=== PATIENT | male | born 1970 | race Caucasian/White ===

== ENCOUNTER 2022-09-18 07:59 | Inpatient (IN) | payer SELFPAY ==
[2022-09-18] VITALS (30 sets, daily range): BP systolic 52–90; BP diastolic 34–73
[~2022-09-18] VITALS: Ht 172.7 cm; Wt 67.4 kg
[2022-09-18 08:40] LABS: HEMATOCRIT. 37.6 % (42.0-52.0); HEMOGLOBIN. 12.8 g/dL (14.0-18.0); MEAN CORPUSCULAR HEMOGLOBIN 29.7 pg (28.0-32.0); MEAN CORPUSCULAR VOLUME 87.7 fL (80.0-94.0); RED BLOOD CELL COUNT 4.29 mill/uL (4.7-6.1); RED CELL DISTRIBUTION WIDTH 14.8 % (11.6-14.6)
[2022-09-18 08:41] LABS: CHLORIDE 95 mEq/L (98-107)
[2022-09-18 08:51] LABS: D-DIMER 5.23 mg/L FEU (<0.50); INR 1.4; PROTHROMBIN TIME 14.6 sec (9.6-11.0)
[2022-09-18 08:54] LABS: PLATELET 18 x1000/uL (130-400)
[2022-09-18] MEDS ORDERED: KCL 20MEQ/100ML PREMIX 100 ML IV ONE (09:00)
[2022-09-18] MEDS ORDERED: PIPERACILLIN/TAZ 3.375G PREMIX 50 ML IV ONE (09:15)
[2022-09-18] MEDS ORDERED: VANCOMYCIN 1G PREMIX 200 ML IV SCH (09:15)
[2022-09-18] MEDS ORDERED: CEFEPIME 1,000 MG in DEXTROSE 5% WATER 50 ML IV SCH (09:15)
[2022-09-18 09:47] LABS: NUCLEATED RED BLOOD CELLS 10 /100 WBC; PLATELET ESTIMATE MARKEDLY DECREASED
[2022-09-18] MEDS ORDERED: SODIUM CHLORIDE 0.9% 500 ML IV ONE (11:00)
[2022-09-18] MEDS ORDERED: DOCUSATE SODIUM 100MG CAPSULE PO PRN (11:30)
[2022-09-18] MEDS ORDERED: CLONIDINE 0.1MG TABLET PO PRN (11:30)
[2022-09-18] MEDS ORDERED: HYDROCODONE/ACETAMINOPHEN 5/325MG TABLET PO PRN (11:30)
[2022-09-18] MEDS ORDERED: ACETAMINOPHEN 325MG TABLET PO PRN ×2 (11:30)
[2022-09-18] MEDS ORDERED: ONDANSETRON HCL 4MG/2ML INJ IV PRN (11:30)
[2022-09-18] MEDS ORDERED: LORAZEPAM 0.5MG TABLET PO PRN (11:30)
[2022-09-18] MEDS ORDERED: IPRATROPIUM/ALBUTEROL 0.5-3(2.5)MG/3ML NEB HHN PRN (11:30)
[2022-09-18 11:45] LABS: BG BASE EXCESS -2.2 mmol/L (-2.0-2.0); BG CARBOXYHEMOGLOBIN 0.4 % (0.5-1.5); BG DEOXYHEMOGLOBIN 13.1 % (0.0-5.0); BG HCO3 ACT 21.8 mmol/L (22.0-26.0); BG METHEMOGLOBIN 0.3 % (0.0-1.5); BG OXYGEN SATURATION 86.8 % (92.0-98.5); BG OXYHEMOGLOBIN 86.2 % (94.0-97.0); BG PCO2 34.8 mmHg (35.0-45.0); BG PH 7.414 (7.350-7.450); BG PO2 53.7 mmHg (75.0-100.0); BG SAMPLE SITE RIGHT RADIAL; BG TOTAL HEMOGLOBIN 13.2 g/dL (12.0-18.0); BG VENT MODE MASK - NRB
[2022-09-18 11:48] LABS: PHOSPHORUS 3.7 mg/dL (2.5-4.9)
[2022-09-18] MEDS ORDERED: ALBUTEROL (0.083%) 2.5MG/3ML NEB HHN SCH (12:00)
[2022-09-18] MEDS ORDERED: AZITHROMYCIN 500MG/250ML 250 ML IV SCH (12:00)
[2022-09-18] MEDS ORDERED: IPRATROPIUM BROMIDE (0.02%) 0.5MG/2.5ML NEB HHN SCH (12:00)
[2022-09-18] MEDS ORDERED: IOHEXOL-350 100 ML BOTTLE ONE (12:22)
[2022-09-18] MEDS ORDERED: ETOMIDATE 2MG/ML 10ML VIAL IV ONE (12:45)
[2022-09-18] MEDS ORDERED: MIDAZOLAM 100MG/100ML PMX 100 ML IV PRN (12:45)
[2022-09-18] MEDS ORDERED: FENTANYL 2500MCG/250ML PMX 250 ML IV ONE (12:45)
[2022-09-18] MEDS ORDERED: SUCCINYLCHOLINE CHLORIDE 200MG/10ML IV ONE (12:45)
[2022-09-18] MEDS ORDERED: NOREPINEPHRINE 8 MG in DEXT 5% WATER 242 ML IV STA (12:59)
[2022-09-18] MEDS ORDERED: MIDAZOLAM HCL 100 MG in SODIUM CHLORIDE 0.9% 100 ML IV PRN (13:00)
[2022-09-18] MEDS: FENTANYL 2500MCG/250ML PMX 250 ML IV NR (13:00)
[2022-09-18] MEDS ORDERED: NOREPINEPHRINE 8 MG in DEXT 5% WATER 242 ML IV NR (13:15)
[2022-09-18] MEDS ORDERED: NOREPINEPHRINE 8MG/250ML PMX 250 ML IV PRN (13:30)
[2022-09-18 13:38] LABS: BG BASE EXCESS -5.2 mmol/L (-2.0-2.0); BG CARBOXYHEMOGLOBIN 0.8 % (0.5-1.5); BG DEOXYHEMOGLOBIN 10.1 % (0.0-5.0); BG HCO3 ACT 20.4 mmol/L (22.0-26.0); BG METHEMOGLOBIN 0.1 % (0.0-1.5); BG OXYGEN SATURATION 89.8 % (92.0-98.5); BG PCO2 40.1 mmHg (35.0-45.0); BG PH 7.325 (7.350-7.450); BG PO2 63.5 mmHg (75.0-100.0); BG SAMPLE SITE RIGHT BRACHIAL; BG TOTAL HEMOGLOBIN 14.2 g/dL (12.0-18.0); BG VENT MODE VENT - AC
[2022-09-18] MEDS ORDERED: MIDAZOLAM HCL 2 MG/2 ML VIAL IV ONE ×2 (13:45→14:15)
[2022-09-18] MEDS ORDERED: PIPERACILLIN/TAZ 3.375G PREMIX 50 ML IV SCH (14:00)
[2022-09-18] MEDS: IPRATROPIUM/ALBUTEROL 0.5-3(2.5)MG/3ML NEB HHN SCH (14:39)
[2022-09-18] MEDS ORDERED: MAGNESIUM 2 G PREMIX 50 ML IV NR (15:00)
[2022-09-18] MEDS ORDERED: NALOXONE HCL 0.4MG/ML VIAL IV PRN (15:15)
[2022-09-18] MEDS: BLOOD SUGAR DIAGNOSTIC STRIP TEST SCH ×4 (15:18→21:00)
[2022-09-18] MEDS: INSULIN LISPRO 100 UNITS/ML SUBCUT SCH ×3 (15:20→21:00)
[2022-09-18] MEDS ORDERED: POTASSIUM CHLORIDE INJ 40 MEQ in DEXT 5% WATER 500 ML IV NR (15:30)
[2022-09-18] MEDS ORDERED: DOPAMINE 400MG/250ML PREMIX 250 ML IV ONE (17:00)
[2022-09-18] MEDS ORDERED: PHENYLEPHRINE 100 MG in DEXT 5% WATER 240 ML IV PRN ×4 (17:00)
[2022-09-18] MEDS ORDERED: SODIUM CHLORIDE 0.9% 1,000 ML IV ONE (17:45)
[2022-09-18] MEDS: VANCOMYCIN 750MG PREMIX 150 ML IV SCH (17:57)
[2022-09-18] MEDS: DEXTROSE 50% WATER 50ML SYRINGE IV PRN ×2 (17:57→23:00)
[2022-09-18] MEDS: VASOPRESSIN 20 UNIT in SODIUM CHLORIDE 0.9% 99 ML IV PRN (17:57)
[2022-09-18 18:00] LABS: CLARITY URINE CLEAR (CLEAR); COLOR URINE YELLOW (YELLOW); KETONES URINE NEGATIVE (NEGATIVE); LEUKOCYTE ESTERASE URINE NEGATIVE (NEGATIVE); NITRITE URINE NEGATIVE (NEGATIVE); OCCULT BLOOD URINE 1+ (NEGATIVE); PH URINE 6.5 (4.5-8.0); PROTEIN URINE 1+ (NEGATIVE)
[2022-09-18] MEDS ORDERED: VANCOMYCIN 750MG PREMIX 150 ML IV SCH (18:00)
[2022-09-18] MEDS: NOREPINEPHRINE 32 MG in DEXT 5% WATER 218 ML IV PRN (18:16)
[2022-09-18] MEDS: EPINEPHRINE 10 MG in SODIUM CHLORIDE 0.9% 240 ML IV PRN ×2 (20:03→22:09)
[2022-09-18] MEDS: PHENYLEPHRINE 100 MG in DEXT 5% WATER 240 ML IV PRN (20:26)
[2022-09-18 20:37] LABS: BG BASE EXCESS -17.9 mmol/L (-2.0-2.0); BG CARBOXYHEMOGLOBIN 0.4 % (0.5-1.5); BG DEOXYHEMOGLOBIN 50.9 % (0.0-5.0); BG FRACTION INSPIRED OXYGEN 100; BG HCO3 ACT 14.9 mmol/L (22.0-26.0); BG METHEMOGLOBIN 0.3 % (0.0-1.5); BG OXYGEN SATURATION 48.7 % (92.0-98.5); BG OXYHEMOGLOBIN 48.4 % (94.0-97.0); BG PH 6.905 (7.350-7.450); BG PO2 40.2 mmHg (75.0-100.0); BG SAMPLE SITE LEFT RADIAL; BG VENT MODE VENT - AC
[2022-09-18] MEDS ORDERED: FILGRASTIM-TBO 480 MCG/0.8 ML SYRINGE SQ SCH (21:00)
[2022-09-18] MEDS ORDERED: METHYLPREDNISOLONE SOD SUCC 125 MG/2 ML VIAL IV SCH (21:30)
[2022-09-18] MEDS ORDERED: LACTATED RINGERS 2,000 ML IV NR (21:35)
[2022-09-18] MEDS ORDERED: SODIUM BICARBONATE 8.4% 1 MEQ/ML 50ML SYR IV NR (21:36)
[2022-09-18] MEDS ORDERED: SODIUM BICARBONATE 100 MEQ in DEXTROSE 5% WATER 1,000 ML IV SCH (22:00)
[2022-09-18] MEDS: PIPERACILLIN/TAZOBACTAM 3.375 G in DEXTROSE 5% WATER 50 ML IV SCH (22:41)
[2022-09-18] MEDS: GUAIFENESIN 600MG ER TABLET PO SCH (22:49)
[2022-09-19] VITALS (142 sets, daily range): BP systolic 38–131; BP diastolic 21–97
[2022-09-19 00:11] LABS: BG BASE EXCESS -17.1 mmol/L (-2.0-2.0); BG CARBOXYHEMOGLOBIN 0.3 % (0.5-1.5); BG DEOXYHEMOGLOBIN 2.7 % (0.0-5.0); BG FRACTION INSPIRED OXYGEN 100; BG HCO3 ACT 12.4 mmol/L (22.0-26.0); BG METHEMOGLOBIN 0.1 % (0.0-1.5); BG OXYGEN SATURATION 97.3 % (92.0-98.5); BG OXYHEMOGLOBIN 96.9 % (94.0-97.0); BG PCO2 46.2 mmHg (35.0-45.0); BG PH 7.047 (7.350-7.450); BG SAMPLE SITE LEFT RADIAL; BG TOTAL HEMOGLOBIN 8.7 g/dL (12.0-18.0); BG VENT MODE VENT - AC
[2022-09-19 00:20] LABS: CHLORIDE 98 mEq/L (98-107)
[2022-09-19] MEDS ORDERED: SODIUM BICARBONATE 8.4% 1 MEQ/ML 50ML SYR IV NR ×4 (01:15→17:21)
[2022-09-19 01:26] LABS: MEAN CORPUSCULAR HEMOGLOBIN 29.7 pg (28.0-32.0); MEAN CORPUSCULAR VOLUME 93.2 fL (80.0-94.0); MEAN PLATELET VOLUME 9.4 fl (7.4-10.4); RED BLOOD CELL COUNT 1.93 mill/uL (4.7-6.1); RED CELL DISTRIBUTION WIDTH 15.6 % (11.6-14.6)
[2022-09-19] MEDS: EPINEPHRINE 10 MG in SODIUM CHLORIDE 0.9% 240 ML IV PRN ×9 (01:32→21:19)
[2022-09-19 01:33] LABS: HEMOGLOBIN. 5.7 g/dL (14.0-18.0); PLATELET 3 x1000/uL (130-400)
[2022-09-19] MEDS: PHENYLEPHRINE 100 MG in DEXT 5% WATER 240 ML IV PRN ×3 (01:34→17:28)
[2022-09-19 02:00] LABS: NUCLEATED RED BLOOD CELLS 8 /100 WBC; PLATELET ESTIMATE DECREASED
[2022-09-19] MEDS: NOREPINEPHRINE 32 MG in DEXT 5% WATER 218 ML IV PRN ×3 (02:10→19:59)
[2022-09-19] MEDS: FENTANYL 2500MCG/250ML PMX 250 ML IV NR (02:21)
[2022-09-19] MEDS: VANCOMYCIN 750MG PREMIX 150 ML IV SCH ×3 (02:44→10:14)
[2022-09-19] MEDS: VASOPRESSIN 20 UNIT in SODIUM CHLORIDE 0.9% 99 ML IV PRN ×2 (03:47→15:49)
[2022-09-19] MEDS ORDERED: DEXT 10% WATER 1,000 ML IV SCH (06:00)
[2022-09-19 06:26] LABS: HEMATOCRIT. 24.9 % (42.0-52.0); HEMOGLOBIN. 7.7 g/dL (14.0-18.0); MEAN CORPUSCULAR HEMOGLOBIN 30.1 pg (28.0-32.0); MEAN CORPUSCULAR VOLUME 96.5 fL (80.0-94.0); RED BLOOD CELL COUNT 2.58 mill/uL (4.7-6.1); RED CELL DISTRIBUTION WIDTH 16.6 % (11.6-14.6)
[2022-09-19 06:36] LABS: CHLORIDE 96 mEq/L (98-107)
[2022-09-19 06:55] LABS: PLATELET 29 x1000/uL (130-400)
[2022-09-19] MEDS: GUAIFENESIN 600MG ER TABLET PO SCH (07:43)
[2022-09-19] MEDS ORDERED: INSULIN REGULAR (HUMULIN R) 300UNITS/3ML VIAL SUBCUT SCH (07:45)
[2022-09-19] MEDS ORDERED: CALCIUM GLUCONATE 1,000 MG in DEXT 5% WATER 90 ML IV ONE (07:45)
[2022-09-19] MEDS ORDERED: SODIUM BICARBONATE 8.4% 1 MEQ/ML 50ML SYR IV SCH ×2 (07:45→11:15)
[2022-09-19] MEDS ORDERED: SODIUM POLYSTYRENE SULFONATE 15 G/60 ML BOT PO SCH (07:45)
[2022-09-19] MEDS ORDERED: DEXTROSE 50% WATER 50ML SYRINGE IV SCH (07:45)
[2022-09-19] MEDS: BLOOD SUGAR DIAGNOSTIC STRIP TEST SCH ×3 (07:50→17:50)
[2022-09-19 07:53] LABS: NUCLEATED RED BLOOD CELLS 250 /100 WBC; PLATELET ESTIMATE MARKEDLY DECREASED
[2022-09-19] MEDS: INSULIN LISPRO 100 UNITS/ML SUBCUT SCH ×3 (08:02→18:12)
[2022-09-19] MEDS: PIPERACILLIN/TAZOBACTAM 3.375 G in DEXTROSE 5% WATER 50 ML IV SCH ×2 (08:03→13:36)
[2022-09-19] MEDS ORDERED: CALCIUM GLUCONATE 1GM PREMIX 50 ML IV SCH (08:30)
[2022-09-19] MEDS: IPRATROPIUM/ALBUTEROL 0.5-3(2.5)MG/3ML NEB HHN SCH ×3 (08:45→20:49)
[2022-09-19] MEDS ORDERED: INSULIN REGULAR (HUMULIN R) 300UNITS/3ML VIAL IV NR (08:45)
[2022-09-19] MEDS ORDERED: MAGNESIUM OXIDE 400MG TABLET PO SCH (09:00)
[2022-09-19] MEDS ORDERED: AZITHROMYCIN 500MG in DEXTROSE 5% WATER 250ML IV SCH (09:00)
[2022-09-19 09:08] LABS: BG BASE EXCESS -22.6 mmol/L (-2.0-2.0); BG CARBOXYHEMOGLOBIN 0.4 % (0.5-1.5); BG DEOXYHEMOGLOBIN 1.3 % (0.0-5.0); BG FRACTION INSPIRED OXYGEN 100; BG HCO3 ACT 6.5 mmol/L (22.0-26.0); BG METHEMOGLOBIN 0.5 % (0.0-1.5); BG OXYGEN SATURATION 98.7 % (92.0-98.5); BG OXYHEMOGLOBIN 97.8 % (94.0-97.0); BG PCO2 27.1 mmHg (35.0-45.0); BG PH 7.001 (7.350-7.450); BG PO2 280.4 mmHg (75.0-100.0); BG SAMPLE SITE LEFT FEMORAL; BG TOTAL HEMOGLOBIN 5.6 g/dL (12.0-18.0); BG TOTAL RESPIRATORY RATE 34 b/min; BG VENT MODE VENT - AC
[2022-09-19] MEDS ORDERED: SODIUM BICARBONATE 150 MEQ in DEXTROSE 5% WATER 1,000 ML IV SCH (10:30)
[2022-09-19] MEDS ORDERED: LIDOCAINE HCL 1% 30ML VIAL (10MG/ML) ONE (10:42)
[2022-09-19 11:06] LABS: BG BASE EXCESS -15.8 mmol/L (-2.0-2.0); BG CARBOXYHEMOGLOBIN 0.5 % (0.5-1.5); BG DEOXYHEMOGLOBIN 4.6 % (0.0-5.0); BG HCO3 ACT 10.7 mmol/L (22.0-26.0); BG METHEMOGLOBIN 0.1 % (0.0-1.5); BG OXYGEN SATURATION 95.4 % (92.0-98.5); BG OXYHEMOGLOBIN 94.8 % (94.0-97.0); BG PCO2 27.6 mmHg (35.0-45.0); BG PH 7.207 (7.350-7.450); BG PO2 105.3 mmHg (75.0-100.0); BG SAMPLE SITE RIGHT FEMORAL; BG TOTAL HEMOGLOBIN 4.5 g/dL (12.0-18.0); BG VENT MODE VENT- PRVC
[2022-09-19 11:23] LABS: HEMATOCRIT 13.4 % (42.0-52.0); HEMOGLOBIN 4.4 g/dL (14.0-18.0)
[2022-09-19] MEDS: DOPAMINE 800MG PREMIX (DOUBLE) 250 ML IV PRN ×2 (11:23→21:19)
[2022-09-19 12:17] LABS: CREATINE KINASE 2296 IU/L (39-308)
[2022-09-19] MEDS ORDERED: INSULIN REGULAR (HUMULIN R) 300UNITS/3ML VIAL IV SCH (14:30)
[2022-09-19] MEDS ORDERED: CALCIUM CHLORIDE 1GM/10ML SYR IV SCH (14:30)
[2022-09-19 15:47] LABS: BG BASE EXCESS -20.1 mmol/L (-2.0-2.0); BG CARBOXYHEMOGLOBIN 0.3 % (0.5-1.5); BG DEOXYHEMOGLOBIN 8.2 % (0.0-5.0); BG HCO3 ACT 7.6 mmol/L (22.0-26.0); BG METHEMOGLOBIN 1.1 % (0.0-1.5); BG OXYGEN SATURATION 91.7 % (92.0-98.5); BG OXYHEMOGLOBIN 90.4 % (94.0-97.0); BG PCO2 24.4 mmHg (35.0-45.0); BG PH 7.109 (7.350-7.450); BG PO2 87.5 mmHg (75.0-100.0); BG SAMPLE SITE RIGHT FEMORAL; BG TOTAL HEMOGLOBIN 5.3 g/dL (12.0-18.0); BG VENT MODE VENT- PRVC
[2022-09-19 17:16] LABS: BG BASE EXCESS -16.1 mmol/L (-2.0-2.0); BG CARBOXYHEMOGLOBIN 0.3 % (0.5-1.5); BG DEOXYHEMOGLOBIN 1.7 % (0.0-5.0); BG HCO3 ACT 9.9 mmol/L (22.0-26.0); BG METHEMOGLOBIN 0.7 % (0.0-1.5); BG OXYGEN SATURATION 98.3 % (92.0-98.5); BG OXYHEMOGLOBIN 97.3 % (94.0-97.0); BG PH 7.234 (7.350-7.450); BG PO2 247.1 mmHg (75.0-100.0); BG SAMPLE SITE RIGHT FEMORAL; BG TOTAL HEMOGLOBIN 6.6 g/dL (12.0-18.0); BG VENT MODE VENT- PRVC
[2022-09-19 18:06] LABS: HEMATOCRIT 17.7 % (42.0-52.0); HEMOGLOBIN 5.8 g/dL (14.0-18.0)
[2022-09-20] MEDS ORDERED: PANTOPRAZOLE SODIUM 40 MG/VIAL IV SCH (09:00)
== END 2022-09-19 21:58 | DRG 720 ==
LOC: ER 07:59 → EDBEDREQ 08:54 → EDBEDREQSVC 08:54 → CVICU 10:14 → EDBEDREQSVC 10:22 → EDBEDREQTM 10:22 → EDBEDREQ 10:22 → EDBEDREQSVC 11:28
PROVIDERS: ADMIT Internal Medicine; ATTEND Internal Medicine
PROC: 5A1945Z Respiratory Ventilation, 24-96 Consecutive Hours (ICD-10-PCS; 2022-09-18)
PROC: 0BH17EZ Insertion of Endotracheal Airway into Trachea, Via Natural or Artificial Opening (ICD-10-PCS; 2022-09-18)
PROC: 5A0935A Assistance with Respiratory Ventilation, Less than 24 Consecutive Hours, High Flow/Velocity Cannula (ICD-10-PCS; 2022-09-18)
PROC: 5A12012 Performance of Cardiac Output, Single, Manual (ICD-10-PCS; principal; 2022-09-19)
PROC: 05HY33Z Insertion of Infusion Device into Upper Vein, Percutaneous Approach (ICD-10-PCS; 2022-09-19)
PROC: 30233R1 Transfusion of Nonautologous Platelets into Peripheral Vein, Percutaneous Approach (ICD-10-PCS; 2022-09-19)
PROC: 30233N1 Transfusion of Nonautologous Red Blood Cells into Peripheral Vein, Percutaneous Approach (ICD-10-PCS; 2022-09-19)
DX: A41.9 Sepsis, unspecified organism (principal); J96.01 Acute respiratory failure with hypoxia; K72.00 Acute and subacute hepatic failure without coma; N17.0 Acute kidney failure with tubular necrosis; I46.9 Cardiac arrest, cause unspecified; D68.9 Coagulation defect, unspecified; E87.1 Hypo-osmolality and hyponatremia; E43 Unspecified severe protein-calorie malnutrition; J18.9 Pneumonia, unspecified organism; R65.21 Severe sepsis with septic shock; D70.9 Neutropenia, unspecified; G93.40 Encephalopathy, unspecified; E87.5 Hyperkalemia; Z20.822 Contact with and (suspected) exposure to COVID-19; C34.90 Malignant neoplasm of unspecified part of unspecified bronchus or lung; J90 Pleural effusion, not elsewhere classified; E11.43 Type 2 diabetes mellitus with diabetic autonomic (poly)neuropathy; I10 Essential (primary) hypertension; E87.4 Mixed disorder of acid-base balance; Z68.26 Body mass index [BMI] 26.0-26.9, adult; E87.6 Hypokalemia; T45.1X5A Adverse effect of antineoplastic and immunosuppressive drugs, initial encounter; Z79.84 Long term (current) use of oral hypoglycemic drugs; Z85.118 Personal history of other malignant neoplasm of bronchus and lung
CPT/HCPCS: 31500; 36415; 36573; 36600; 71045; 71275; 76700; 80053; 80202; 81003; 82375; 82550; 82805; 82962; 83036; 83605; 83735; 83880; 84100; 84132; 84145; 84443; 84484; 85014; 85018; 85025; 85379; 86850; 86900; 86920; 87070; 87077; 87186; 87426; 87804; 93005; 93306; 93970; 99291; C1725; C9803; J0456; J0610; J0692; J1265; J1442; J1815; J2250; J2370; J2543; J2930; J3010; J3370; J3475; J3480; J3490; J7040; J7050; J7060; J7070; P9016; P9034; Q9967; A4315